=== PATIENT | male | born 1990 | race Caucasian/White ===

== ENCOUNTER 2023-03-07 12:53 | Emergency (ER) | payer OTHER ==
[2023-03-07] MEDS ORDERED: Ketorolac 30 MG/ML SDV IVPUSH ONE (13:30)
[2023-03-07] MEDS ORDERED: Sodium Chloride 0.9% 1,000 ML IV ONE (13:30)
[2023-03-07 13:52] LABS: BASOPHILS ABSOLUTE AUTO 0.06 K/uL (0.00-0.20); BASOPHILS PERCENT AUTO 0.6 % (0.0-1.0); EOSINOPHILS ABSOLUTE AUTO 0.04 K/uL (0.00-0.45); EOSINOPHILS PERCENT AUTO 0.4 % (0.0-6.0); HEMATOCRIT 41.7 % (42.0-52.0); HEMOGLOBIN 14.3 g/dL (14.0-18.0); IMMATURE GRAN ABSOLUTE AUTO 0.07 K/uL (0.00-0.05); IMMATURE GRAN PERCENT AUTO 0.7 % (0.0-0.4); LYMPHOCYTES ABSOLUTE AUTO 2.66 K/uL (1.00-4.80); LYMPHOCYTES PERCENT AUTO 25.9 % (24.0-44.0); MEAN CORPUSCULAR HEMOGLOBIN 30.1 pg (28.0-32.0); MEAN CORPUSCULAR HGB CONC 34.3 g/dL (32.0-36.0); MEAN CORPUSCULAR VOLUME 87.8 fL (83.0-99.0); MEAN PLATELET VOLUME 9.4 fL (9.4-12.4); MONOCYTES ABSOLUTE AUTO 0.82 K/uL (0.00-0.80); NEUTROPHILS ABSOLUTE AUTO 6.64 K/uL (1.80-7.70); NEUTROPHILS PERCENT AUTO 64.4 % (41.0-71.0); PLATELET COUNT,PLT 288 K/uL (150-400); RED BLOOD CELL COUNT 4.75 M/uL (4.52-5.90); WHITE BLOOD CELL COUNT,WBC 10.29 K/uL (3.9-11.3)
[2023-03-07 14:20] LABS: BILIRUBIN TOTAL 0.3 mg/dL (0.2-1.0); CALCIUM 9.2 mg/dL (8.5-10.1); CARBON DIOXIDE,CO2 27.8 mmol/L (21.0-32.0); CREATININE 0.8 mg/dL (0.8-1.3); EST CRCL DRUG DOSING (CG) 117.45 mL/min; POTASSIUM,K 3.9 mmol/L (3.5-5.1); PROTEIN TOTAL,TP 8.1 g/dL (6.4-8.2)
== END 2023-03-07 15:56 | disposition home or self-care (01) ==
LOC: MW.ED 12:53
DX: K80.20 Calculus of gallbladder without cholecystitis without obstruction (principal)
CPT/HCPCS: 36415; 76705; 80053; 83690; 83735; 85025; 96361; 96374; 99284; J1885; J7030

== ENCOUNTER 2023-04-03 06:23 | Day surgery (SDC) | payer OTHER ==
[~2023-04-03 06:23] MED LIST: Lactated Ringers 1,000 ML IV SCH; cefOXitin 2 GM in Sodium Chloride 0.9% 100 ML IV ONE
[2023-04-03] MEDS ORDERED: Naloxone 0.4 MG/ML SDV IVPUSH PRN (07:14)
[2023-04-03] MEDS ORDERED: Ondansetron 4 MG/2 ML SDV IVPUSH PRN (07:14)
[2023-04-03] MEDS ORDERED: Albuterol 0.083% 2.5 MG/3 ML Neb Soln NEB PRN (07:14)
[2023-04-03] MEDS ORDERED: Morphine 2 MG/ML SYRINGE IVPUSH PRN (07:14)
[2023-04-03] MEDS ORDERED: droPERidol 5 MG/2 ML SDV IVPUSH PRN (07:14)
[2023-04-03] MEDS ORDERED: Metoclopramide 10 MG/2 ML SDV IVPUSH PRN (07:14)
[2023-04-03] MEDS ORDERED: HYDROmorphone 1 MG/ML Syringe IVPUSH PRN (07:14)
[2023-04-03] MEDS ORDERED: fentaNYL 50 MCG/ML SDV IVPUSH PRN (07:14)
[2023-04-03] MEDS ORDERED: Propofol 200 MG/20 ML SDV ONE (07:27)
[2023-04-03] MEDS ORDERED: dexmedeTOMIDine HCl 200 MCG/2 ML SDV ONE (07:27)
[2023-04-03] MEDS ORDERED: Rocuronium Bromide 50 MG/5 ML Syringe ONE (07:27)
[2023-04-03] MEDS ORDERED: fentaNYL 100 MCG/2 ML SDV ONE (07:27)
[2023-04-03] MEDS ORDERED: Water For Injection, Sterile 20 ML ONE (07:27)
[2023-04-03] MEDS ORDERED: Bupivacaine 0.5% 30 ML SDV ONE (07:28)
[2023-04-03] MEDS ORDERED: ceFAZolin 1 GM Vial ONE (07:28)
[2023-04-03] MEDS ORDERED: Ropivacaine 0.5% 5 MG/ML 30 ML SDV ONE (07:39)
[2023-04-03] MEDS ORDERED: Indocyanine Green 25 MG SDV ONE (08:08)
[2023-04-03] MEDS ORDERED: cefOXitin 1 GM Vial ONE (08:18)
[2023-04-03] MEDS ORDERED: Magnesium Sulfate (4.06 MEQ/ML) 5 GM/10 ML SDV ONE (08:28)
[2023-04-03] MEDS ORDERED: Dexamethasone 4 MG/ML 5 ML MDV ONE (08:43)
[2023-04-03] MEDS ORDERED: Ondansetron 4 MG/2 ML SDV ONE (08:43)
[2023-04-03] MEDS ORDERED: fentaNYL 250 MCG/5 ML SDV ONE (08:44)
[2023-04-03] MEDS ORDERED: Ketorolac 30 MG/ML SDV ONE (08:56)
[2023-04-03] MEDS ORDERED: Sugammadex Sodium 200 MG/2 ML VIAL ONE (08:56)
[2023-04-03] MEDS ORDERED: Morphine 4 MG/ML Syringe IVPUSH PRN (09:36)
[2023-04-03] MEDS ORDERED: Acetaminophen/HYDROcodone 325-5 MG Tab PO PRN (09:36)
[2023-04-03] MEDS ORDERED: Lactated Ringers 1,000 ML IV SCH (09:45)
== END 2023-04-03 12:10 | disposition home or self-care (01) ==
LOC: MW.SDS 06:23
PROVIDERS: ATTEND Surgery
DX: K80.10 Calculus of gallbladder with chronic cholecystitis without obstruction (principal); E66.01 Morbid (severe) obesity due to excess calories; Z72.0 Tobacco use; Z68.41 Body mass index [BMI] 40.0-44.9, adult
CPT/HCPCS: 47562; J0131; J0694; J1100; J1885; J2405; J2704; J2795; J3010; J3475; J3490; J7120; 00790; 64488; J0665; J0690